=== PATIENT | male | born 1940 | race Caucasian/White ===

== ENCOUNTER 2024-03-31 13:49 | Inpatient (IN) | payer OTHER, BC ==
[~2024-03-31] VITALS: Ht 162.6 cm; Wt 50.8 kg
[2024-03-31 13:52] VITALS: BP_SYST 116; PULSE 117; RESP 18; TEMP 98.8; O2SAT 96
[2024-03-31] MEDS ORDERED: CRAN450C PO (14:14)
[2024-03-31] MEDS ORDERED: CHOL50006 PO (14:14)
[2024-03-31] MEDS ORDERED: BISA10SU77 RC (14:14)
[2024-03-31] MEDS ORDERED: ENOX30DI4 SQ (14:14)
[2024-03-31] MEDS ORDERED: ACET325T39 PO (14:14)
[2024-03-31] MEDS ORDERED: ASCO-495 PO (14:14)
[2024-03-31] MEDS ORDERED: MEMA5TAB16 PO (14:15)
[2024-03-31] MEDS ORDERED: TAMS-11 PO ×2 (14:15)
[2024-03-31] MEDS ORDERED: [UNRECOGNIZED DRUG - CODE] PO (14:15)
[2024-03-31] MEDS ORDERED: MAGN24002 PO (14:15)
[2024-03-31] MEDS ORDERED: TRAM50TA2 PO (14:15)
[2024-03-31] MEDS ORDERED: MULT-1189 PO (14:15)
[2024-03-31] MEDS ORDERED: FINA5TAB11 PO (14:15)
[2024-03-31] MEDS ORDERED: AMIN30LI45 PO (14:15)
[2024-03-31] MEDS ORDERED: THIA100T73 PO (14:15)
[2024-03-31] MEDS ORDERED: FERR325T30 PO (14:15)
[2024-03-31] MEDS ORDERED: ZINC50TA2 PO (14:15)
[2024-03-31 14:29] LABS: BASOPHILS % (AUTO) 0.2 % (0.0-2.0); EOSINOPHILS % (AUTO) 0.3 % (0.0-4.0); HEMATOCRIT 29.3 % (36-54); HEMOGLOBIN 9.9 g/dL (14.0-18.0); LYMPHOCYTES # (AUTO) 0.4 K/uL (1.0-5.5); LYMPHOCYTES % (AUTO) 3.1 % (20.5-51.5); MEAN CORPUSCULAR HEMOGLOBIN 28 pg (27-31); MEAN CORPUSCULAR HGB CONC 34 % (32-36); MEAN CORPUSCULAR VOLUME 83 fL (79.0-98.0); MONOCYTES # (AUTO) 1.1 K/uL (0.0-1.0); MONOCYTES % (AUTO) 8.1 % (1.7-9.3); NEUTROPHILS # (AUTO) 12.5 K/uL (1.8-7.7); NEUTROPHILS % (AUTO) 88.3 % (40.0-70.0); PLATELET COUNT (AUTO) 391 K/uL (130-430); RED BLOOD CELL COUNT(AUTO) 3.52 MIL/uL (4.2-6.2); RED CELL DISTRIBUTION WIDTH 13.5 % (9.0-15.0); WHITE BLOOD COUNT (AUTO) 14.2 K/uL (4.8-10.8)
[2024-03-31 14:40] LABS: PROTHROMBIN TIME 10.7 SECS (9.5-12.5)
[2024-03-31 14:41] LABS: ALANINE AMINOTRANSFERASE 18 U/L (12-78); ALBUMIN 2.7 g/dL (3.4-4.8); ANION GAP 6 (5-15); ASPARTATE AMINOTRANSFERASE 16 U/L (10-37); CALCIUM 9.4 mg/dL (8.4-11.0); CARBON DIOXIDE 29 mmol/L (23-29); CHLORIDE 96 mmol/L (98-107); CREATININE 1.27 mg/dL (0.55-1.30); GLUCOSE 123 mg/dL (74-106); POTASSIUM 4.5 mmol/L (3.5-5.1); SODIUM SERUM 131 mmol/L (136-145); TOTAL BILIRUBIN 0.4 mg/dL (0.0-1.0); TOTAL PROTEIN, SERUM 7.3 g/dL (6.4-8.3); UREA NITROGEN, BLOOD 36 mg/dL (8-21)
[2024-03-31] MEDS: ACETAMINOPHEN 650 MG SUPP.RECT RC ONE (14:52)
[2024-03-31 15:11] LABS: ACETAMINOPHEN < 1 ug/mL (1-30); ALCOHOL, BLOOD < 3 mg/dL (<10); BILIRUBIN,DIRECT 0.1 mg/dL (0.0-0.3); CREATINE KINASE, TOTAL 21 U/L (39-308); SALICYLATE 2 mg/dL (3-30)
[2024-03-31 15:12] LABS: BILIRUBIN,URINE NEGATIVE (NEGATIVE); BLOOD, URINE 3+ (NEGATIVE); CLARITY/URINE CLOUDY (CLEAR); COLOR,URINE YELLOW (YELLOW); GLUCOSE,URINE NEGATIVE (NEGATIVE); KETONES,URINE NEGATIVE (NEGATIVE); LEUKOCYTE ESTERASE ,URINE 1+ (NEGATIVE); NITRITE, URINE NEGATIVE (NEGATIVE); PROTEIN URINE 3+ (NEGATIVE)
[2024-03-31 15:12] LABS: ACETONE, SERUM NEGATIVE (NEGATIVE)
[2024-03-31] MEDS ORDERED: cefTRIAXone 1 GM VIAL ONE (15:33)
[2024-03-31 15:45] LABS: BARBITURATE, URINE NEGATIVE (NEG <=200); BENZODIAZEPINE, URINE NEGATIVE (NEG <=150); CANNABINOID, URINE NEGATIVE (NEG <=50); COCAINE, URINE NEGATIVE (NEG <=150); METHAMPHETAMINES SCREEN,URINE NEGATIVE (NEG <=500); OPIATE, URINE NEGATIVE (NEG <=100); PHENCYCLIDINE SCREEN,URINE NEGATIVE (NEG <=25); URINE AMPHETAMINE NEGATIVE (NEG <=500); URINE METHADONE NEGATIVE (NEG <=200); URINE OXYCODONE SCREEN NEGATIVE (NEG <=100)
[2024-03-31 15:46] LABS: UR TRICYCLIC ANTIDEPRESSANTS NEGATIVE (NEG <=300)
[2024-03-31] MEDS: cefTRIAXone 1 GM in D5W 50 ML IV ONE (15:46)
[2024-03-31 15:51] LABS: RBC,URINE >100 /HPF (0-3)
[2024-03-31 15:52] LABS: BACTERIA,URINE MODERATE /HPF (None Seen)
[2024-03-31 15:53] LABS: MUCUS,URINE None Seen /LPF (None Seen)
[2024-03-31 16:40] LABS: INFLUENZA TYPE A Negative (NEGATIVE); INFLUENZA TYPE B NEGATIVE (NEGATIVE)
[2024-03-31] MEDS: KCL 20 mEq in D5/0.45NS 1000mL 1,000 ML IV ONE (17:23)
[2024-03-31] MEDS: KCL 20 mEq in D5/0.45NS 1000mL 1,000 ML IV SCH (19:14)
[2024-03-31] MEDS: MEMANTINE HCL 5 MG TABLET PO SCH (21:00)
[2024-03-31] MEDS: AZITHROMYCIN 500 MG in NS 250 ML IV SCH (21:30)
[2024-03-31 21:51] VITALS: BP_SYST 100; PULSE 94; RESP 18; TEMP 97.2
[2024-03-31 22:25] VITALS: O2SAT 95
[2024-04-01 01:36] VITALS: BP_SYST 97; PULSE 82; RESP 17; TEMP 98.1; O2SAT 96
[2024-04-01 07:25] LABS: BASOPHILS % (AUTO) 0.8 % (0.0-2.0); EOSINOPHILS # (AUTO) 0.3 K/uL (0.0-0.4); EOSINOPHILS % (AUTO) 5.4 % (0.0-4.0); HEMATOCRIT 24.8 % (36-54); HEMOGLOBIN 8.5 g/dL (14.0-18.0); LYMPHOCYTES # (AUTO) 0.7 K/uL (1.0-5.5); LYMPHOCYTES % (AUTO) 10.6 % (20.5-51.5); MEAN CORPUSCULAR HEMOGLOBIN 29 pg (27-31); MEAN CORPUSCULAR HGB CONC 34 % (32-36); MEAN CORPUSCULAR VOLUME 84 fL (79.0-98.0); MONOCYTES # (AUTO) 0.7 K/uL (0.0-1.0); MONOCYTES % (AUTO) 11.1 % (1.7-9.3); NEUTROPHILS # (AUTO) 4.6 K/uL (1.8-7.7); NEUTROPHILS % (AUTO) 72.1 % (40.0-70.0); PLATELET COUNT (AUTO) 341 K/uL (130-430); RED BLOOD CELL COUNT(AUTO) 2.96 MIL/uL (4.2-6.2); RED CELL DISTRIBUTION WIDTH 13.3 % (9.0-15.0); WHITE BLOOD COUNT (AUTO) 6.3 K/uL (4.8-10.8)
[2024-04-01] MEDS ORDERED: METO10TA3 PO (07:37)
[2024-04-01] MEDS ORDERED: MOM PO (07:37)
[2024-04-01 07:50] VITALS: BP_SYST 94; PULSE 81; RESP 16; TEMP 96.9; O2SAT 94
[2024-04-01 08:25] LABS: ALANINE AMINOTRANSFERASE 14 U/L (12-78); ALBUMIN 2.2 g/dL (3.4-4.8); ANION GAP 3 (5-15); ASPARTATE AMINOTRANSFERASE 14 U/L (10-37); CALCIUM 9.1 mg/dL (8.4-11.0); CARBON DIOXIDE 30 mmol/L (23-29); CHLORIDE 102 mmol/L (98-107); FREE T4 (FREE THYROXINE) 1.1 ng/dl (0.8-1.5); GLUCOSE 94 mg/dL (74-106); SODIUM SERUM 135 mmol/L (136-145); THYROID STIMULATING HORMONE 1.17 uIu/mL (0.36-3.74); TOTAL BILIRUBIN 0.3 mg/dL (0.0-1.0); TOTAL PROTEIN, SERUM 6.3 g/dL (6.4-8.3); UREA NITROGEN, BLOOD 26 mg/dL (8-21)
[2024-04-01] MEDS: ENOXAPARIN SODIUM 30 MG/0.3 ML SYRINGE SQ SCH (08:44)
[2024-04-01] MEDS: CHOLECALCIFEROL (VITAMIN D3) 5,000 UNIT TABLET PO SCH (09:00)
[2024-04-01] MEDS: FINASTERIDE 5 MG TABLET (PROSCAR) PO SCH (09:00)
[2024-04-01] MEDS: FERROUS SULFATE 325 MG TABLET.DR PO SCH (09:00)
[2024-04-01] MEDS: THIAMINE HCL 100 MG TABLET PO SCH (09:00)
[2024-04-01] MEDS: TAMSULOSIN HCL 0.4 MG CAP PO SCH (09:00)
[2024-04-01 13:00] VITALS: BP_SYST 102; PULSE 75; RESP 16; TEMP 97.4; O2SAT 97
[2024-04-01] MEDS: cefTRIAXone 1 GM in D5W 50 ML IV SCH (15:14)
[2024-04-01 16:35] VITALS: BP_SYST 91; PULSE 51; RESP 16; TEMP 97.5; O2SAT 93
[2024-04-01 20:00] VITALS: BP_SYST 93; PULSE 88; RESP 16; TEMP 97.9; O2SAT 97
[2024-04-01 22:48] LABS: TOTAL IRON BIND. CAPACITY 130 ug/dL (250-450)
[2024-04-02 01:04] VITALS: BP_SYST 102; PULSE 79; RESP 17; TEMP 98.4; O2SAT 95
[2024-04-02 07:19] LABS: BASOPHILS # (AUTO) 0.1 K/uL (0.0-0.2); EOSINOPHILS # (AUTO) 0.3 K/uL (0.0-0.4); EOSINOPHILS % (AUTO) 5.1 % (0.0-4.0); HEMATOCRIT 28.2 % (36-54); HEMOGLOBIN 9.5 g/dL (14.0-18.0); LYMPHOCYTES # (AUTO) 0.5 K/uL (1.0-5.5); LYMPHOCYTES % (AUTO) 9.1 % (20.5-51.5); MEAN CORPUSCULAR HEMOGLOBIN 28 pg (27-31); MEAN CORPUSCULAR HGB CONC 34 % (32-36); MEAN CORPUSCULAR VOLUME 84 fL (79.0-98.0); MONOCYTES # (AUTO) 0.6 K/uL (0.0-1.0); MONOCYTES % (AUTO) 10.4 % (1.7-9.3); NEUTROPHILS # (AUTO) 4.5 K/uL (1.8-7.7); NEUTROPHILS % (AUTO) 74.4 % (40.0-70.0); PLATELET COUNT (AUTO) 377 K/uL (130-430); RED BLOOD CELL COUNT(AUTO) 3.36 MIL/uL (4.2-6.2); RED CELL DISTRIBUTION WIDTH 13.1 % (9.0-15.0)
[2024-04-02 08:09] VITALS: BP_SYST 98; PULSE 73; RESP 16; TEMP 98.1; O2SAT 97
[2024-04-02 08:15] LABS: ALANINE AMINOTRANSFERASE 14 U/L (12-78); ALBUMIN 2.3 g/dL (3.4-4.8); ANION GAP 5 (5-15); ASPARTATE AMINOTRANSFERASE 14 U/L (10-37); CALCIUM 8.9 mg/dL (8.4-11.0); CARBON DIOXIDE 28 mmol/L (23-29); CHLORIDE 102 mmol/L (98-107); CREATININE 1.03 mg/dL (0.55-1.30); GLUCOSE 104 mg/dL (74-106); POTASSIUM 3.8 mmol/L (3.5-5.1); SODIUM SERUM 135 mmol/L (136-145); TOTAL BILIRUBIN 0.3 mg/dL (0.0-1.0); TOTAL PROTEIN, SERUM 6.5 g/dL (6.4-8.3); UREA NITROGEN, BLOOD 22 mg/dL (8-21)
[2024-04-02 12:52] VITALS: BP_SYST 129; PULSE 88; RESP 17; TEMP 98.2; O2SAT 96
[2024-04-02 16:32] VITALS: BP_SYST 100; PULSE 82; RESP 17; TEMP 98.9; O2SAT 96
[2024-04-02 20:00] VITALS: BP_SYST 108; PULSE 93; RESP 16; TEMP 98.4; O2SAT 96
[2024-04-03] VITALS: BP_SYST 104; PULSE 90; RESP 18; TEMP 97.6; O2SAT 96
[2024-04-03 09:20] VITALS: BP_SYST 79; PULSE 86; RESP 12; O2SAT 95
[2024-04-03 12:07] VITALS: BP_SYST 79; PULSE 86; RESP 12; TEMP 98.4; O2SAT 95
[2024-04-03] MEDS: traMADol HCL HCL 50 MG TABLET (ULTRAM) PO SCH (12:18)
[2024-04-03 15:38] VITALS: BP_SYST 111; PULSE 98; RESP 15; TEMP 99; O2SAT 96
[2024-04-03 17:09] VITALS: BP_SYST 111; PULSE 98; RESP 15; TEMP 99; O2SAT 96
[2024-04-03 20:00] VITALS: BP_SYST 104; PULSE 89; RESP 18; TEMP 98; O2SAT 95; O2SAT 96
[2024-04-04] VITALS (9 sets, daily range): BP systolic 89–121; PULSE 79–96; RESP 14–18; TEMP 98.1–100.5; O2SAT 94–96
[2024-04-04] MEDS: NS 500 ML IV ONE (10:44)
[2024-04-04] MEDS: ACETAMINOPHEN 650 MG SUPP.RECT RC PRN (17:46)
[2024-04-05] VITALS (9 sets, daily range): BP systolic 86–94; PULSE 76–95; RESP 14–18; TEMP 98.4–99.2; O2SAT 93–95
[2024-04-05 06:04] LABS: BASOPHILS # (AUTO) 0.1 K/uL (0.0-0.2); EOSINOPHILS # (AUTO) 0.3 K/uL (0.0-0.4); EOSINOPHILS % (AUTO) 7.6 % (0.0-4.0); HEMATOCRIT 25.1 % (36-54); HEMOGLOBIN 8.7 g/dL (14.0-18.0); LYMPHOCYTES # (AUTO) 0.5 K/uL (1.0-5.5); LYMPHOCYTES % (AUTO) 14.2 % (20.5-51.5); MEAN CORPUSCULAR HEMOGLOBIN 29 pg (27-31); MEAN CORPUSCULAR HGB CONC 35 % (32-36); MEAN CORPUSCULAR VOLUME 82 fL (79.0-98.0); MONOCYTES # (AUTO) 0.5 K/uL (0.0-1.0); MONOCYTES % (AUTO) 12.4 % (1.7-9.3); NEUTROPHILS # (AUTO) 2.4 K/uL (1.8-7.7); NEUTROPHILS % (AUTO) 62.8 % (40.0-70.0); PLATELET COUNT (AUTO) 342 K/uL (130-430); RED BLOOD CELL COUNT(AUTO) 3.04 MIL/uL (4.2-6.2); RED CELL DISTRIBUTION WIDTH 13.5 % (9.0-15.0)
[2024-04-05 06:44] LABS: ALANINE AMINOTRANSFERASE 11 U/L (12-78); ALBUMIN 2.1 g/dL (3.4-4.8); ANION GAP 4 (5-15); ASPARTATE AMINOTRANSFERASE 13 U/L (10-37); CARBON DIOXIDE 29 mmol/L (23-29); CHLORIDE 106 mmol/L (98-107); CREATININE 1.02 mg/dL (0.55-1.30); GLUCOSE 100 mg/dL (74-106); POTASSIUM 4.5 mmol/L (3.5-5.1); SODIUM SERUM 139 mmol/L (136-145); TOTAL BILIRUBIN 0.2 mg/dL (0.0-1.0); UREA NITROGEN, BLOOD 28 mg/dL (8-21)
[2024-04-05 08:43] LABS: WHITE BLOOD COUNT (AUTO) 3.8 K/uL (4.8-10.8)
[2024-04-05] MEDS: VANCOMYCIN HCL 750 MG in NS 250 ML IV SCH (22:33)
[2024-04-06 00:25] VITALS: BP_SYST 98; PULSE 92; RESP 18; TEMP 98.6; O2SAT 93
[2024-04-06 07:44] LABS: ALANINE AMINOTRANSFERASE 11 U/L (12-78); ANION GAP 6 (5-15); ASPARTATE AMINOTRANSFERASE 12 U/L (10-37); CALCIUM 8.8 mg/dL (8.4-11.0); CARBON DIOXIDE 29 mmol/L (23-29); CHLORIDE 104 mmol/L (98-107); CREATININE 1.06 mg/dL (0.55-1.30); GLUCOSE 101 mg/dL (74-106); POTASSIUM 4.5 mmol/L (3.5-5.1); SODIUM SERUM 139 mmol/L (136-145); TOTAL BILIRUBIN 0.2 mg/dL (0.0-1.0); TOTAL PROTEIN, SERUM 5.9 g/dL (6.4-8.3); UREA NITROGEN, BLOOD 28 mg/dL (8-21)
[2024-04-06 08:00] VITALS: BP_SYST 90; PULSE 86; RESP 16; TEMP 98.1; O2SAT 94
[2024-04-06 12:51] VITALS: BP_SYST 97; PULSE 93; RESP 17; TEMP 98.5; O2SAT 98
[2024-04-06 16:26] VITALS: BP_SYST 97; PULSE 89; RESP 16; TEMP 98.2; O2SAT 96
[2024-04-06 17:41] VITALS: BP_SYST 97; PULSE 89; RESP 16; TEMP 98.2; O2SAT 96
== END 2024-04-06 18:50 | DRG 177 ==
LOC: SED 13:49 → STU 16:03 → SMU 04-03 23:30
PROVIDERS: ADMIT Family Medicine; ATTEND Family Medicine
DX: J69.0 Pneumonitis due to inhalation of food and vomit (principal); G93.41 Metabolic encephalopathy; N39.0 Urinary tract infection, site not specified; E46 Unspecified protein-calorie malnutrition; Z68.1 Body mass index [BMI] 19.9 or less, adult; D64.9 Anemia, unspecified; I10 Essential (primary) hypertension; N40.0 Benign prostatic hyperplasia without lower urinary tract symptoms; B96.5 Pseudomonas (aeruginosa) (mallei) (pseudomallei) as the cause of diseases classified elsewhere; Z20.822 Contact with and (suspected) exposure to COVID-19; Z79.899 Other long term (current) drug therapy; Z88.8 Allergy status to other drugs, medicaments and biological substances
CPT/HCPCS: 36415; 70450-TC; 71045; 80048; 80053; 80076; 80307; 81000; 81001; 81015; 82009; 82140; 82550; 83540; 83550; 83605; 83735; 84439; 84443; 84484; 85025; 85610; 85730; 87040; 87081; 87086; 87186; 92610-GN; 93005; 96365; 99285; G0378; G0480; G0481; G0482; J0456; J0696; J1650; J1956; J7040; J7050; J7060